=== PATIENT | female | born 1995 | race African-American/Black ===

== ENCOUNTER 2020-06-21 00:16 | Emergency (ER) | payer SELFPAY ==
[~2020-06-21] VITALS: Ht 157.5 cm; Wt 87.2 kg
[2020-06-21 00:32] VITALS: BP 122/81
[2020-06-21] MEDS ORDERED: IBUPROFEN 600MG TABLET PO STA (00:55)
== END 2020-06-21 02:41 | disposition home or self-care (01) ==
LOC: ER 00:16
DX: M25.511 Pain in right shoulder (principal); M54.5 Low back pain; V43.62XA Car passenger injured in collision with other type car in traffic accident, initial encounter; Y93.89 Activity, other specified; Y92.488 Other paved roadways as the place of occurrence of the external cause
CPT/HCPCS: 72100; 73030; 99284